=== PATIENT | female | born 1960 | race Caucasian/White ===

== ENCOUNTER 2017-02-03 09:11 | Day surgery (SDC) | payer SELFPAY ==
[~2017-02-03] VITALS: Ht 157.5 cm; Wt 67.1 kg
[2017-02-03 11:01] VITALS: BP 119/76
== END 2017-02-03 10:47 | disposition home or self-care (01) | DRG 951 ==
LOC: ENDO 09:11
PROVIDERS: ATTEND Surgery
PROC: 0DJD8ZZ Inspection of Lower Intestinal Tract, Via Natural or Artificial Opening Endoscopic (ICD-10-PCS; principal; 2017-02-03)
DX: Z12.11 Encounter for screening for malignant neoplasm of colon (principal); Q43.8 Other specified congenital malformations of intestine; K64.4 Residual hemorrhoidal skin tags